=== PATIENT | male | born 1975 | race Two or more races ===

== ENCOUNTER 2024-07-21 05:58 | Emergency (ER) | payer MEDICAID, OTHER ==
[~2024-07-21] VITALS: Ht 167.6 cm; Wt 69.0 kg
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
[2024-07-21] MEDS: IBUPROFEN 800 MG TAB PO ONE (08:05)
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
[2024-07-21 09:05] VITALS: BP 104/55; PULSE 50; RESP 18; TEMP 97.9; O2SAT 96
[2024-07-21] MEDS ORDERED: IBU600T PO (10:37)
== END 2024-07-21 10:44 | disposition home or self-care (01) ==
LOC: ER 05:58 → EDBD 05:58 → ER 10:43
DX: M54.6 Pain in thoracic spine (principal); M79.18 Myalgia, other site; E78.5 Hyperlipidemia, unspecified; V89.2XXA Person injured in unspecified motor-vehicle accident, traffic, initial encounter; Y93.89 Activity, other specified; Y92.411 Interstate highway as the place of occurrence of the external cause; Y99.8 Other external cause status
CPT/HCPCS: 72070; 72110